=== PATIENT | female | born 1970 | race Caucasian/White ===

== ENCOUNTER 2022-09-01 16:19 | Outpatient (REF) | payer SELFPAY ==
[2022-09-01 16:15] LABS: Abs Immature Grans 0.02 10^3/uL (0.0-0.06); Absolute Basophil Count 0.04 10^3/uL (0.0-0.2); Absolute Lymphocyte Count 2.75 10^3/uL (1.2-3.4); Absolute Monocyte Count 0.44 10^3/uL (0.1-0.8); Basophils % 0.6; Eosinophils % 4.7; HCT 42.3 % (36.0-46.0); Immature Grans % 0.3; Lymphocytes % 43.3; MCH 28.9 pg (27.0-33.0); MCHC 33.1 % (32.0-36.0); MCV 87 fL (80-95); MPV 10.2 fL (8.0-11.0); Monocytes % 6.9; Neutrophils % 44.2; Platelet Count 249 10^3/uL (130-400); RBC 4.84 10^6/uL (3.93-5.22); RDW 12.8 % (11.7-14.6); RDW-SD 41.3 fL; WBC 6.35 10^3/uL (4.4-10.8)
[2022-09-01 16:35] LABS: ALT 29 U/L (14-59); AST 25 U/L (15-37); Albumin 4.1 g/dL (3.4-5.0); Alkaline Phosphatase 71 U/L (46-116); Anion Gap 7.3 mmol/L (3-11); BUN 14 mg/dL (7-18); Bilirubin, Total 0.6 mg/dL (0.2-1.0); CO2 29.7 mmol/L (21.0-32.0); Calcium 9.2 mg/dL (8.5-10.1); Calculated LDL 154 mg/dL (<100); Chloride 102 mmol/L (98-107); Cholesterol 257 mg/dL (<200); Estimated GFR 67.36 (mL/min/1.73m2); Glucose 94 mg/dL (74-106); HDL Cholesterol 79 mg/dL (40-60); Potassium 4.1 mmol/L (3.5-5.1); Sodium 139 mmol/L (136-145); TSH (W/Ref FT4) 2.07 uIU/mL (0.36-3.74); Total Protein 7.9 g/dL (6.4-8.2); Triglyceride 120 mg/dL (<150)
== END 2022-09-01 16:20 | disposition home or self-care (01) ==
LOC: NCHCN 16:19
PROVIDERS: Visit Provider Nurse Practitioner Family
DX: N95.1 Menopausal and female climacteric states (principal); Z13.220 Encounter for screening for lipoid disorders; Z12.4 Encounter for screening for malignant neoplasm of cervix; Z12.31 Encounter for screening mammogram for malignant neoplasm of breast; Z12.11 Encounter for screening for malignant neoplasm of colon; Z68.33 Body mass index [BMI] 33.0-33.9, adult
CPT/HCPCS: 80053; 80061; 84443; 85025

== ENCOUNTER 2022-09-21 15:10 | Outpatient (REF) | payer SELFPAY ==
--- NOTE | 2022-09-21 14:30 | PAPFT_PTH ---
PATIENT: Danuta Cespedes LOC: [facility] U#:[id number] AGE/SX: 52/F ROOM: RE09/21/[address]: Yamini Coffey DO : 1970 BED: DIS: 09/21/2022 SPEC #: [id number] RECD: 09/21/22 17:52 STATUS: WENDY REQ #: [id number] INA: 09/21/22 14:[address]: Yamini Coffey DEPT: [facility] Cytology RECD BY: Dorothy Baltazar Tissues: 1 - CX/ENDOCX FOR PAP SMEARS Procedures: PAP THIN PREP/UVM Screening HPV DNA PROBE Comments: [id number]
== END 2022-09-21 15:11 | disposition home or self-care (01) ==
LOC: LBN 15:10
PROVIDERS: Visit Provider Obstetrics & Gynecology
DX: Z12.4 Encounter for screening for malignant neoplasm of cervix (principal); Z11.51 Encounter for screening for human papillomavirus (HPV)
CPT/HCPCS: 88142; 87624

== ENCOUNTER 2023-08-30 20:39 | Outpatient (REF) | payer OTHER, SELFPAY | END 2023-08-30 20:40 | disposition home or self-care (01) | LOC: LBN 20:39 | PROVIDERS: Visit Provider Physician Assistant | DX: N39.0 Urinary tract infection, site not specified (principal) | CPT/HCPCS: 87086 ==

== ENCOUNTER 2024-03-05 01:26 | Outpatient (CLI) | payer OTHER, SELFPAY ==
--- NOTE | 2024-03-05 | DI.MAMMO_ITS ---
Exam(s) MAMMO SCREENING EXAM: MAMMO SCREENING CLINICAL HISTORY: SCREENING MAMMO FOR BREAST CANCER Z12.31 TECHNIQUE: Bilateral full field digital CC and MLO mammographic images were obtained with 3D tomosyn thesis and utilizing computer aided detection (CAD). COMPARISON: There are no priors for comparison. FINDINGS: Masses/Architectural Distortion: There is a an 8 mm well-circumscribed nodule in the upper inner quad rant of the left breast 6 cm from the nipple. No other nodules are seen. No areas of architectural distortion are present. Microcalcifications: No suspicious pleomorphic-type are seen. Skin Thickening/Nipple Retraction: None. IMPRESSION: 1. 8 mm well-circumscribed nodule in the upper inner quadrant of the left breast. Spot compression v iews requested for further evaluation. 2. Limited left breast ultrasound may be indicated at that time. BI-RADS Category 0 - Incomplete: Need additional imaging evaluation Breast Density - Category C - Heterogeneously dense Breast density category C or D implies that the patient has dense breast tissue. Dense breast tissue is very common and is not abnormal but dense breast tissue can make it harder to find cancer on a ma mmogram. Also, dense breast tissue may increase their breast cancer risk. This information about the result of the mammogram report was provided to the patient to raise their awareness. Use this report when you speak with the patient about their risks for breast cancer, which includes their family hist ory. At that time, you may recommend for more screening tests (Ultrasound or MRI) as they might be us eful based on their risk. A negative radiographic report should not delay biopsy if a dominant or clinically suspicious mass is present. Up to ten percent of cancers are not identified on mammography. A negative report may reinforce clinical impression. Adenosis and dense breasts may obscure an underlying neoplasm. False positive reports average 6 to 10%. Patient will receive a letter notifying them of these results.
== END 2024-03-05 01:46 ==
PROVIDERS: Visit Provider Nurse Practitioner
DX: Z12.31 Encounter for screening mammogram for malignant neoplasm of breast (principal); R92.333 Mammographic heterogeneous density, bilateral breasts; N63.22 Unspecified lump in the left breast, upper inner quadrant
CPT/HCPCS: 77063; 77067

== ENCOUNTER 2024-03-21 01:07 | Outpatient (CLI) | payer OTHER, SELFPAY ==
--- NOTE | 2024-03-21 | DI.MAMMO_ITS ---
Exam(s) MG MAMMO SCREEN CALL BACK UNI US BREAST LT LIMITED EXAM: MG MAMMO SCREEN CALL BACK UNI CLINICAL HISTORY: F/U MAMMO, 8 MM NODULE UIQ LT BREAST. TECHNIQUE: Craniocaudal and mediolateral oblique spot compression digital Mammography views of the b reast with Tomosynthesis and breast ultrasound. COMPARISON: MG MG MAMMO SCREENING from 03/05/2024 US US BREAST LT LIMITED from 03/21/2024 Patient has had prior mammograms from [facility] which have been requested but not yet rece ived. FINDINGS: Mammography/Tomosynthesis: Masses: Persistent ovoid circumscribed nodule with a few coarse calcifications. Likely fibroadenoma. Architectural Distortion: None seen. Microcalcifictions: No suspicious pleomorphic-type are seen. Skin Thickening/Nipple Retraction: None. Left breast US: Echotexture: Normal appearance of the glandular tissue. Shadowing: No suspicious foci. Cyst: None. Solid lesions: 5 x 4 x 4 millimeter hypoechoic circumscribed nodule in the 12 o'clock position, 3 cm from the nipple. Ductal dilation: None. IMPRESSION: 1. Benign appearing nodule in the superior left breast, likely fibroadenoma. 2. Six-month follow-up mammogram and ultrasound recommended. If the patient's prior exams become taqueria ilable, an addendum will be issued. 3. The findings were discussed with the patient on the date of the examination. BI-RADS Category 3 - 6 month - Probably Benign Finding: Recommend follow-up mammography in 6 months Breast Density - Category B - Scattered areas of fibroglandular density A negative radiographic report should not delay biopsy if a dominant or clinically suspicious mass is present. Up to ten percent of cancers are not identified on mammography. A negative report may reinforce clinical impression. Adenosis and dense breasts may obscure an underlying neoplasm. False positive reports average 6 to 10%. Patient will receive a letter notifying them of these results.
== END 2024-03-21 01:27 ==
PROVIDERS: PCP Nurse Practitioner Family; Visit Provider Nurse Practitioner
DX: D24.2 Benign neoplasm of left breast (principal); Z12.31 Encounter for screening mammogram for malignant neoplasm of breast; R92.323 Mammographic fibroglandular density, bilateral breasts
CPT/HCPCS: 76642; 77063; 77067

== ENCOUNTER 2024-05-18 09:51 | Day surgery (SDC) | payer OTHER, SELFPAY ==
--- NOTE | 2024-05-17 14:59 | PDOC.DSDIS_ITS ---
Date of service: 05/18/24 Discharge Plan Disposition Patient Disposition: Home Condition: Good Discharge Details Reason For Visit: screening colonoscopy Attending Provider: Jolynn Gardner Primary Care Provider: SHAHLA MAYS Home Meds and New Rx's Prescriptions: Continued ascorbic acid (vitamin C) 500 mg capsule 500 mg PO DAILY cholecalciferol (vitamin D3) 25 mcg (1,000 unit) capsule 25 mcg PO DAILY mecobalamin (vitamin B12) 500 mcg tablet,chewable 500 mcg PO DAILY multivitamin Tablet 1 tab PO DAILY Discontinued bisacodyl [Dulcolax (bisacodyl)] 5 mg tablet,delayed release (DR/EC) 5 mg PO ONCE Qty: 4 0RF Rx Instructions: Take per colonoscopy instructions provided by ordering providers office polyethylene glycol 3350 17 gram/dose powder 17 g PO ONCE Qty: 238 0RF Rx Instructions: Take per colonoscopy instructions provided by ordering providers office Discharge Instructions Additional Instructions: DSU Colonoscopy Post- Op Instructions Instructions for Everyone who is given Anesthesia: For your safety, please do the following for the next twenty-four (24) hours: *Do Not operate a motor vehicle (car, truck, motorcycle, etc.) *Do Not drink alcoholic beverages or use any recreational drugs for the first 24 hours or while taking pain medications. The medications in your body may have a reaction that can be dangerous. *Do Not make any important decisions or sign any important papers. Findings:diverticula- Make sure you are moving your bowels on a regular basis and not straining. If you find you are having problems with constipat ion/straining, than we recommend you start a fiber product such as metamucil daily. Follow up: My office will send you a letter in 2 to 3 weeks time with the results of the pathology and when we want you to repeat your colonoscopy. Most likely 5 to 7 years time 1. No lifting over 20 pounds or strenuous activity for the first 24 hours after your procedure. After 24 hours there are no restrictions on your activity but you may feel fatigued for a few days. 2. After you arrive home you may have a light meal and return to your normal diet as you can tolerate it without feeling sick to your stomach. 3. You may have a bloated, gaseous feeling in your belly (abdomen) after a colonoscopy. Passing gas and belching will help. Walking or lying down on your left side with your knees flexed may relieve the discomfort. Call the office at [phone] (Office) or [phone] (Hospital) right away if you notice any of the following: a.Vomiting of blood or ?coffee ground stools?. b.Rectal bleeding 1Tbsp, blood clots or continuous bleeding. c.Severe belly (abdominal) pain. d.A hard distended belly (abdomen) and an inability to pass gas. 4. Please don?t expect to have a normal BM (bowel movement) for 2-3 days after your procedure. 5. If there are questions regarding the findings of your procedure, please contact your doctor 6. If you are unable to contact your doctor with a problem, contact the hospital at [phone]. 7. Continue all your regular medications unless directed otherwise. I understand the above instructions and have no questions. Signature of Patient or Adult Escort Name of Responsible Adult Escort Signature of Nurse Date/Time Activity:: See above Diet:: The above Discharge Orders Discharge Orders: Discharge Order (Routine); Ordered 05/17/24 Ordered By: David Carney DS: Diagnosis Discharge Diagnosis (1) Encounter for screening colonoscopy: Status: Acute
--- NOTE | 2024-05-17 15:00 | COLE_ITS ---
Documented by User: David Carney MD 05/18/24 17:16 Date of service: 05/18/24 Colonoscopy Report Date of procedure: 05/18/24 Pre-op diagnosis general: screening colonoscopy Procedure: colonoscopy Surgeon: David Carney Anesthesia Type: General:No Airway Complications: None Disposition: same day Indications: Danuta is a 54 year old woman who needs a screening colonoscopy Prep: Miralax/Dulcolax [place] Bowel Prep Warsaw Bowel Prep Total Score: 8 Documented by User: Jolynn Gardner DO 05/18/24 13:37 Time of Service: 11:18 Colonoscopy Report Post-op diagnosis procedure note: other (Diverticula and polyps) Surgeon: Jolynn Gardner Estimated blood loss (mL): 2 Pathology: other Retraction Time: 10 Procedure Description: After informed consent was obtained, explaining risks of the procedure, including but not limits to: bleeding, infections, complications of anesthesia, perforations (which may require antibiotics and /or surgery and stay in the hospital), and abdominal pain/cramping. The patient was taken to the procedure room and placed in a left decubitous position. Monitors were applied and a time out was done. The patients name, date of , procedure, allergies to medications and metal in their body was reviewed. The patient was then sedated. Once sedated and comfortable a rectal exam was done. External exam was normal. Internal exam revealed a normal sphincter tone and no palpable masses. The previously lubricated Olympus scope was then introduced (see RN notes for scope number) and retrofelexed. No internal hemorrhoids were identified. The scope was then advanced to the cecum without difficulty. The TI and appendiceal orifice were identified. The scope was then slowly retracted over 10 minutes back into the rectum. Polyps: A flat, .5cm polyp was found at 80cm. This was removed with a cold biting forceps. All of the specimen was retrieved. This will be sent to pathology. There is no bleeding noted from the polypectomy site. Diverticula: pt had a moderate amount of small mouthed diverticula in the sigmoid colon. There were no signs of active bleeding or infection. The mucosa is pink and healthy w/ a normal vascular pattern. The scope was removed, and the patient was woken up and taken back to Same day surg cecilio in stable condition. The patient tolerated the procedure well and there were no immediate complications. Follow up: The patient should follow up in 5-7 years, path pd unless they develop changes in bowel habits or other new gastrointestinal complaints. Warsaw Bowel Prep Warsaw Bowel Prep Right Colon: 2 Left Colon: 3 Transverse Colon: 3 Total Score: 8
[2024-05-18 10:25] VITALS: BP 100/70; PULSE 91; RESP 16; TEMP 36.6; O2SAT 97
[2024-05-18 10:35] VITALS: BMI 29.5
--- NOTE | 2024-05-18 10:35 | W.ANESPRE ---
General Info Date of Service Date Performed: 05/18/24 Height: 5 ft 6 in Weight: 83 kg Body Mass Index (BMI): 29.5 Surgical Procedure: Operation Date: 05/18/24 10:35 Proposed Procedure Side Surgeon p Carl Carney MD Meds Allergies and Home Medications Allergies Allergy/AdvReac Type Severity Reaction Status Date / Time codeine AdvReac Mild Other (See Verified 05/18/24 10:22 Comment) Home Medication ?Medication ?Instructions ?Recorded ascorbic acid (vitamin C) 500 mg 500 mg PO DAILY 03/07/23 capsule cholecalciferol (vitamin D3) 25 25 mcg PO DAILY 03/07/23 mcg (1,000 unit) capsule mecobalamin (vitamin B12) 500 mcg 500 mcg PO DAILY 03/07/23 chewable tablet multivitamin 1 tab PO DAILY 04/27/24 Current Visit Medications: Current Medications Generic Name Dose Route Start Last Admin Trade Name Freq PRN Reason Stop Dose Admin Ringer's Solution 1,000 mls @ 80 mls/hr 05/18/24 09:00 IV 06/17/24 08:59 INFUSION TAMY IV Miscellaneous Supplies 1 each 05/18/24 06:00 Iv Access IV 05/18/24 23:59 DIRECTED TAMY Ondansetron HCl 4 mg 05/17/24 15:01 Ondansetron 4 Mg/2 Ml Vial IVP 06/16/24 15:00 Q4H PRN PRN Nausea / Vomiting Sodium Chloride 0 ml 05/18/24 06:00 Normal Saline Flush 10 Ml Syr IV 05/18/24 23:59 PRN PRN Sodium Chloride 0 ml 05/18/24 06:00 Normal Saline 10 Ml Vial IJ 05/18/24 23:59 DIRECTED PRN Sterile Water 0 ml 05/18/24 06:00 Water,Injection,Sterile 10 Ml Vial IJ 05/18/24 23:59 DIRECTED PRN PFSH Active Problems Active Problems: Problem Status Onset Code Encounter for screening colonoscopy Acute Z12.11 History of cervical dysplasia Acute Z87.410 Menopausal symptoms Acute N95.1 Well woman exam with routine gynecological exam Acute Z01.419 Surgical History Surgical History Hx of section Hx of dilation and curettage 2007 Tobacco Smoking/Tobacco Use Status: Former Tobacco Use Alcohol Alcohol Intake: current Alcohol intake frequency: a few times a month Substance Use Substance use: Never Substance use type: does not use Details: alcohol: t-6, one glass Prental History History 6 Para 4 Hx # Term Pregnancies 4 Multiple births Hx # Pregnancies Ectopic pregnancies AB induced Hx Number of Living Children 4 AB spontaneous Vital Signs and Lab Results Vital Signs Most Recent Vital Signs in EMR: Most Recent Vital Signs Temp Pulse Resp BP Pulse Ox 36.6 C 91 H 16 100/70 97 05/18/24 10:25 05/18/24 10:25 05/18/24 10:25 05/18/24 10:25 05/18/24 10:25 Lab Results Blood Type / Crossmatch: No Data to Display Complete Blood Count: No Data to Display Complete Metabolic Panel: No Data to Display Liver Function Panel: No Data to Display Coagulation Panel: No Data to Display Cardiac Panel: No Data to Display Arterial Blood Gas: No Data to Display Venous Blood Gas: No Data to Display Pancreas Panel: No Data to Display Thyroid Panel: No Data to Display Infectious Disease: No Data to Display Blood Cultures: No Data to Display Toxicology Panel: No Data to Display Anesthesia Assessment and Plan Anesthesia History Personal History: No History of Anesthesia Complications Family History: No Family History of Anesthesia Complications Exercise Tolerance Exercise Tolerance: Metabolic Equivalents>4 Pertinent Negatives Pertinent Negatives: No Symptoms of GERD Cardiac & Pulmonary Exam Cardiac Exam: Normal S1/S2 Heart Sounds Pulmonary Exam: Clear Bilateral Breath Sounds Implantable Cardiac Device Does patient have a Pacemaker or an ICD?: No Airway Exam Known Difficult Airway: No Mallampati Class: 2 Mouth Opening: Normal (> 3cm) Thyromental Distance: Greater than 3 cm Neck Range of Motion: Full ROM Neck Circumference: Normal Teeth Condition: Normal Dentition ASA Classification ASA Score: ASA 2 Emergency Case?: No NPO Status NPO Status: NPO Clears >2 hours, Solids >8 hours Anesthesia Plan Resuscitation Status: Full Code Anesthesia Technique: General Anesthesia Airway Planned: Natural Airway Monitors Used: Standard Monitors
[2024-05-18] MEDS: Lactated Ringers 1,000 ML 80 ML IV (10:40)
--- NOTE | 2024-05-18 11:36 | BOWEL_PTH ---
PATIENT: Danuta Cespedes LOC: [facility] U#:[id number] AGE/SX: 54/F ROOM: RE05/18/[address]: Jolynn Gardner : 1970 BED: DIS: 05/18/2024 SPEC #: [id number] RECD: 05/18/24 13:15 STATUS: WENDY RE #: [id number] INA: 05/18/24 11:[address]: Jolynn Gardner DEPT: Surgical Specimen RECD BY: Dorothy Baltazar ENTERED: 05/18/24 13:16 SP TYPE: Bowel OTHR DR: SHAHLA MAYS, [employer] Tissues: 1 - BIOPSY BOWEL Procedures: GROSS AND MICRO LEVEL 4 Comments: [id number]
[2024-05-18 11:54] VITALS: BP 101/68; PULSE 74; RESP 17; TEMP 36.1; O2SAT 98
[2024-05-18 11:55] VITALS: BMI 29.5
--- NOTE | 2024-05-18 11:55 | W.ANESPRE ---
General Info Date of Service Date Performed: 05/18/24 Height: 5 ft 6 in Weight: 83 kg Body Mass Index (BMI): 29.5 Surgical Procedure: Operation Date: 05/18/24 10:35 Proposed Procedure Side Surgeon p Colonoscopy Jolynn Gardner, DO Actual Procedure Side Surgeon p Colonoscopy WITH polypectomy Not Applicable Jolynn Gardner, DO Pre-Op Diagnosis Post-Op Diagnosis SCREENING DIVERTICULOSIS,COLON POLYP Meds Allergies and Home Medications Allergies Allergy/AdvReac Type Severity Reaction Status Date / Time codeine AdvReac Mild Other (See Verified 05/18/24 10:22 Comment) Home Medication ?Medication ?Instructions ?Recorded ascorbic acid (vitamin C) 500 mg 500 mg PO DAILY 03/07/23 capsule cholecalciferol (vitamin D3) 25 25 mcg PO DAILY 03/07/23 mcg (1,000 unit) capsule mecobalamin (vitamin B12) 500 mcg 500 mcg PO DAILY 03/07/23 chewable tablet multivitamin 1 tab PO DAILY 04/27/24 Current Visit Medications: Current Medications Generic Name Dose Route Start Last Admin Trade Name Freq PRN Reason Stop Dose Admin Ringer's Solution 1,000 mls @ 80 mls/hr 05/18/24 09:00 05/18/24 11:46 IV 06/17/24 08:59 80 mls/hr INFUSION TAMY Infusion IV Miscellaneous Supplies 1 each 05/18/24 06:00 Iv Access IV 05/18/24 23:59 DIRECTED TAMY Ondansetron HCl 4 mg 05/17/24 15:01 Ondansetron 4 Mg/2 Ml Vial IVP 06/16/24 15:00 Q4H PRN PRN Nausea / Vomiting Sodium Chloride 0 ml 05/18/24 06:00 Normal Saline Flush 10 Ml Syr IV 05/18/24 23:59 PRN PRN Sodium Chloride 0 ml 05/18/24 06:00 Normal Saline 10 Ml Vial IJ 05/18/24 23:59 DIRECTED PRN Sterile Water 0 ml 05/18/24 06:00 Water,Injection,Sterile 10 Ml Vial IJ 05/18/24 23:59 DIRECTED PRN PFSH Active Problems Active Problems: Problem Status Onset Code Encounter for screening colonoscopy Acute Z12.11 History of cervical dysplasia Acute Z87.410 Menopausal symptoms Acute N95.1 Well woman exam with routine gynecological exam Acute Z01.419 Surgical History Surgical History Hx of section Hx of dilation and curettage 2007 Tobacco Smoking/Tobacco Use Status: Former Tobacco Use Alcohol Alcohol Intake: current Alcohol intake frequency: a few times a month Substance Use Substance use: Never Substance use type: does not use Details: alcohol: t-6, one glass Prental History History 6 Para 4 Hx # Term Pregnancies 4 Multiple births Hx # Pregnancies Ectopic pregnancies AB induced Hx Number of Living Children 4 AB spontaneous Vital Signs and Lab Results Vital Signs Most Recent Vital Signs in EMR: Most Recent Vital Signs Temp Pulse Resp BP Pulse Ox 36.6 C 91 H 16 100/70 97 05/18/24 10:25 05/18/24 10:25 05/18/24 10:25 05/18/24 10:25 05/18/24 10:25 Lab Results Blood Type / Crossmatch: No Data to Display Complete Blood Count: No Data to Display Complete Metabolic Panel: No Data to Display Liver Function Panel: No Data to Display Coagulation Panel: No Data to Display Cardiac Panel: No Data to Display Arterial Blood Gas: No Data to Display Venous Blood Gas: No Data to Display Pancreas Panel: No Data to Display Thyroid Panel: No Data to Display Infectious Disease: No Data to Display Blood Cultures: No Data to Display Toxicology Panel: No Data to Display Anesthesia Assessment and Plan Anesthesia History Personal History: No History of Anesthesia Complications Family History: No Family History of Anesthesia Complications Exercise Tolerance Exercise Tolerance: Metabolic Equivalents>4 Pertinent Negatives Pertinent Negatives: No Symptoms of GERD Cardiac & Pulmonary Exam Cardiac Exam: Normal S1/S2 Heart Sounds Pulmonary Exam: Clear Bilateral Breath Sounds Implantable Cardiac Device Does patient have a Pacemaker or an ICD?: No Airway Exam Known Difficult Airway: No Mallampati Class: 2 Mouth Opening: Normal (> 3cm) Thyromental Distance: Greater than 3 cm Neck Range of Motion: Full ROM Neck Circumference: Normal Teeth Condition: Normal Dentition ASA Classification ASA Score: ASA 2 Emergency Case?: No NPO Status NPO Status: NPO Clears >2 hours, Solids >8 hours Anesthesia Plan Resuscitation Status: Full Code Anesthesia Technique: General Anesthesia Airway Planned: Natural Airway Monitors Used: Standard Monitors
--- NOTE | 2024-05-18 11:57 | W.ANESPOSTOP ---
Postoperative Evaluation Date, Time and Location Date Performed: 05/18/24 Time Performed: 11:57 Patient Location: Day Surgery Unit Vital Signs Most Recent Imported Vital Signs: Most Recent Vital Signs Temp Pulse Resp BP Pulse Ox 36.1 C L 74 17 101/68 98 05/18/24 11:54 05/18/24 11:54 05/18/24 11:54 05/18/24 11:54 05/18/24 11:54 Pain Score Most Recent Pain Score: Most Recent Pain Score Pain Level 0 05/18/24 10:25 Assessment Mental Status: Awake (Alert & Oriented to Patient Baseline) Airway and Respiratory Function: Patent airway with normal (patient baseline) respiratory exam Cardiovascular Function: Hemodynamically Stable Hydration Status: Adequately Hydrated Nausea & Vomiting: No Nausea or Vomiting Pain: Pt. Denies Any Pain Peripheral Nerve Block: Patient did not receive a nerve block
[2024-05-18 12:17] VITALS: BP 110/81; PULSE 63; RESP 20; TEMP 36.1; O2SAT 99
== END 2024-05-18 12:42 | disposition home or self-care (01) ==
PROVIDERS: PCP Nurse Practitioner Family; Visit Provider Surgery
PROC: 0DJD8ZZ Inspection of Lower Intestinal Tract, Via Natural or Artificial Opening Endoscopic (ICD-10-PCS; CPT 45378; principal; 2024-05-18 10:30)
DX: Z12.11 Encounter for screening for malignant neoplasm of colon (principal); D12.4 Benign neoplasm of descending colon; K57.30 Diverticulosis of large intestine without perforation or abscess without bleeding
CPT/HCPCS: 45380; 88305; J2704

== ENCOUNTER 2024-09-10 00:29 | Outpatient (CLI) | payer OTHER, SELFPAY ==
--- NOTE | 2024-09-10 | DI.MAMMO_ITS ---
Exam(s) US BREAST LT COMPLETE MG MAMMO DIAGNOSTIC UNI EXAM: MG MAMMO DIAGNOSTIC UNI-LEFT AND COMPLETE LEFT BREAST ULTRASOUND CLINICAL HISTORY: f/u abnl mammo, lt breast, R92.8, benign-appearing nodule superior. TECHNIQUE: Unilateral LEFT BREAST CC AND MLO mammographic images were obtained with 3D tomosynthesis technique and utilizing computer aided detection (CAD). COMPLETE LEFT BREAST ULTRASOUND was performed including all 4 quadrants as well as the axillary regio ns. COMPARISON: Prior mammograms were reviewed, the most recent being February 2024. The most recent iam mogram prior to that was 2018.. Ultrasound of 03/21/2024 also reviewed FINDINGS: DIAGNOSTIC LEFT BREAST MAMMOGRAM: Fibroglandular tissue pattern is again noted be moderately dense. The previously described oval partially calcified nodule at approximately 12 o'clock position is unch anged in size and configuration from the prior mammogram of February 2024. It is again noted to conta in 2 small sub mm microcalcifications No other new mammographic findings in left breast. COMPLETE LEFT BREAST ULTRASOUND: There is again noted a solitary finding in all 4 quadrants which is again noted to be at the 12 o'denisse ck position and most probably corresponding to the finding on the mammogram. This measures approxima tely 4 x 3 mm. It is not possible to see the tiny microcalcifications by ultrasound which are seen w ithin this nodule on the mammogram. There are no other focal ultrasound findings in all 4 quadrants. Scanning of the left axilla is negative for significant adenopathy. IMPRESSION: 1. Stable mammographic appearance of the recently described small left breast nodule 12 o'clock posit ion 2. Stable ultrasound appearance of 12 o'clock position nodule. 3. Appropriate follow-up is to keep this patient on her yearly mammogram schedule, implying there nex t bilateral mammogram would be in February or March 2025. I personally spoke with this patient as I note that her last mammogram prior to February 2024 was in 2 018. The patient was informed of the findings and follow-up recommendations by myself prior to leaving the department today. BI-RADS Category 3 - 6 month - Probably Benign Finding: Recommend follow-up mammography in 6 months Breast Density - Category C - The breast are heterogeneously dense, which may obscure small masses. Breast density Category C or D implies that the patient has dense breast tissue. Dense breast tissue can make it harder to find cancer on a mammogram. Dense breast tissue is also associated with an incr eased risk of breast cancer. This information about the result of the mammogram report was provided to the patient to raise their awareness. Use this report when you speak with the patient about their risks for breast cancer, which includes their family history. At that time, you may recommend additional screening tests (Ultrasoun d or MRI) as these tests may add significant information. A negative radiographic report should not delay biopsy if a dominant or clinically suspicious mass is present. Up to ten percent of cancers are not identified on mammography. A negative report may reinforce clinical impression. Adenosis and dense breasts may obscure an underlying neoplasm. False positive reports average 6 to 10%. Patient will receive a letter notifying them of these results.
== END 2024-09-10 00:49 ==
LOC: DI 00:30
PROVIDERS: PCP Nurse Practitioner Family; Visit Provider Nurse Practitioner
DX: Z12.31 Encounter for screening mammogram for malignant neoplasm of breast (principal); R92.323 Mammographic fibroglandular density, bilateral breasts; N63.22 Unspecified lump in the left breast, upper inner quadrant
CPT/HCPCS: 76642; 77061; 77065; G0279

== ENCOUNTER → 2025-03-15 03:22 | Outpatient (CLI) | payer OTHER, SELFPAY ==
--- NOTE | 2025-03-15 13:34 | DI.MAMMO_ITS ---
Exam(s) MAMMO DIAGNOSTIC BI EXAM: MAMMO DIAGNOSTIC BI CLINICAL HISTORY: BREAST NODULE N63.0 TECHNIQUE: Bilateral full field digital CC and MLO mammographic images were obtained with 3D tomosynthesis and utilizing computer aided detection (CAD). COMPARISON: Comparison is made with prior examinations. FINDINGS: Masses/Architectural Distortion: No suspicious masses or areas of architectural distortion are present. There is a stable left breast nodule. Microcalcifications: No suspicious pleomorphic-type are seen. Skin Thickening/Nipple Retraction: None. IMPRESSION: 1. No significant interval change with no specific features of malignancy noted. 2. Unless there is more urgent need, screening mammography is recommended, as per [employer] [employer] guidelines. 3. Findings were discussed with the patient on the date of the examination. BI-RADS Category 2 - Benign Findings Breast Density - Category B - There are scattered areas of fibroglandular density. Breast density Category C or D implies that the patient has dense breast tissue. Dense breast tissue can make it harder to find cancer on a mammogram. Dense breast tissue is also associated with an increased risk of breast cancer. This information about the result of the mammogram report was provided to the patient to raise their awareness. Use this report when you speak with the patient about their risks for breast cancer, which includes their family history. At that time, you may recommend additional screening tests (Ultrasound or MRI) as these tests may add significant information. A negative radiographic report should not delay biopsy if a dominant or clinically suspicious mass is present. Up to ten percent of cancers are not identified on mammography. A negative report may reinforce clinical impression. Adenosis and dense breasts may obscure an underlying neoplasm. False positive reports average 6 to 10%. Patient will receive a letter notifying them of these results.
== END ==
PROVIDERS: PCP Nurse Practitioner Family; Visit Provider Nurse Practitioner
DX: N63.20 Unspecified lump in the left breast, unspecified quadrant (principal); Z12.31 Encounter for screening mammogram for malignant neoplasm of breast
CPT/HCPCS: 77062; 77066; G0279